=== PATIENT | female | born 1990 | race African-American/Black ===

== ENCOUNTER 2016-10-11 22:34 | Emergency (ER) | payer SELFPAY ==
[~2016-10-11] VITALS: Ht 165.1 cm; Wt 70.0 kg
[2016-10-11 22:35] VITALS: BP 133/70; PULSE 90; RESP 12; TEMP 97.9; O2SAT 98
--- NOTE | 2016-10-11 22:40 | PD ---
Physical Exam Date Seen by Provider: Oct 11, 2016 Time Seen by Provider: 22:38 Data Data Last Documented VS Vital Signs Date Time Temp Pulse Resp B/P Pulse Ox O2 Delivery O2 Flow Rate FiO2 10/11/16 22:35 97.9 90 12 133/70 98 Room Air MDM Supervised Visit with JAKE: No Narrative Course 26 YO F with complaint of 1 week history of right sided "rib pain." Rated 4/10. Worsened by deep breathing, certain movements. Patient thinks she may have "pulled something" at work. LMP 09/22 Vitals reviewed. Patient seen in triage, awaiting bed placement. Scripts No Active Prescriptions or Reported Meds Rayna Ramos Oct 11, 2016 22:40
--- NOTE | 2016-10-12 00:36 | PD ---
HPI Chief Complaint: Pain: Acute or Chronic Time Seen by Provider: 00:35 Travel History International Travel<30 days: No Contact w/Intl Traveler<30days: No Traveled to known affect area: No History of Present Illness HPI 26-year-old female came to the emergency room with history of right upper quadrant/right lower lung field pain that's pleuritic in nature. Patient says it's been going on for past 7 days. The pain has not worsened or gotten better but just ate the same. No history of fever or chills. No history of hemoptysis. No history of syncopal episode. Vital signs are stable. Denies any recent long distance travel, procedures or surgery or prolonged immobilization. No past history of PE or DVTs. No family history of PE or DVTs. No history of nausea vomiting. Patient is a smoker. [facility] Past Medical History Narrative Medical List of her past medical, surgical, social and family history is reviewed from the nursing note. Anemia: Yes Cancer: No Cardiovascular Problems: Yes (MURMUR) Cerebrovascular Accident: No Diabetes: No Diminished Hearing: No Myocardial Infarction: No ?: Unknown LMP: 09/22/16 Menopausal: No : 1 Para: 1 Past Surgical History Surgical History: No Previous Surgery Social History Alcohol Use: Yes (RARE) Tobacco Use: Yes (2 PPW) Substance Use: No Allergies-Medications (Allergen,Severity, Reaction): Coded Allergies: Citric Acid (Verified Allergy, Severe, hives, 10/12/16) Comments List of her allergies reviewed from the nursing note. Reported Meds & Prescriptions Reported Meds & Active Scripts Active Diclofenac Sodium DR (Diclofenac Sodium) 75 Mg Tabdr 75 Mg PO BID Narrative Medication Awaiting for the nurse to do the med reconciliation. Review of Systems Except as stated in HPI: all other systems reviewed are Neg Physical Exam Narrative GENERAL: Awake, alert, mild distress SKIN: Focused skin assessment warm/dry. HEAD: Atraumatic. Normocephalic. EYES: Pupils equal and round. No scleral icterus. No injection or drainage. ENT: No nasal bleeding or discharge. Mucous membranes pink and moist. NECK: Trachea midline. No JVD. CARDIOVASCULAR: Regular rate and rhythm. No murmur appreciated. RESPIRATORY: No accessory muscle use. Clear to auscultation. Breath sounds equal bilaterally. GASTROINTESTINAL: Abdomen soft, right upper quadrant tenderness, nondistended. Hepatic and splenic margins not palpable. MUSCULOSKELETAL: No obvious deformities. No clubbing. No cyanosis. No edema. NEUROLOGICAL: Awake and alert. No obvious cranial nerve deficits. Motor grossly within normal limits. Normal speech. PSYCHIATRIC: Appropriate mood and affect; insight and judgment normal. Data Data Last Documented VS Vital Signs Date Time Temp Pulse Resp B/P Pulse Ox O2 Delivery O2 Flow Rate FiO2 10/12/16 01:08 99 Room Air 10/11/16 22:35 97.9 90 12 133/70 Orders Ed Poc Ultrasound (10/12/16 ) Complete Blood Count With Diff (10/12/16 00:54) Comprehensive Metabolic Panel (10/12/16 00:54) D-Dimer (10/12/16 00:54) Chest, Single Ap (10/12/16 00:54) Ecg Monitoring (10/12/16 00:54) Bilateral Bp Monitoring (10/12/16 00:54) Iv Access Insert/Monitor (10/12/16 00:54) Oximetry (10/12/16 00:54) Oxygen Administration (10/12/16 00:54) Sodium Chloride 0.9% Flush (Ns Flush) (10/12/16 01:00) Urinalysis - C+S If Indicated (10/12/16 00:54) Ed Urine Pregnancytest Poc (10/12/16 00:54) Ketorolac Inj (Toradol Inj) (10/12/16 01:00) Sodium Chlor 0.9% 1000 Ml Inj (Ns 1000 M (10/12/16 01:45) Ct Pulmonary Angiogram (10/12/16 01:44) Iohexol 350 Inj (Omnipaque 350 Inj) (10/12/16 02:00) Ketorolac Inj (Toradol Inj) (10/12/16 03:30) Labs Laboratory Tests Test 10/12/16 01:10 White Blood Count 8.1 TH/MM3 Red Blood Count 3.41 MIL/MM3 Hemoglobin 10.2 GM/DL Hematocrit 30.5 % Mean Corpuscular Volume 89.6 FL Mean Corpuscular Hemoglobin 29.9 PG Mean Corpuscular Hemoglobin 33.4 % Concent Red Cell Distribution Width 13.4 % Platelet Count 228 TH/MM3 Mean Platelet Volume 10.2 FL Neutrophils (%) (Auto) 56.7 % Lymphocytes (%) (Auto) 28.1 % Monocytes (%) (Auto) 6.9 % Eosinophils (%) (Auto) 7.3 % Basophils (%) (Auto) 1.0 % Neutrophils # (Auto) 4.6 TH/MM3 Lymphocytes # (Auto) 2.3 TH/MM3 Monocytes # (Auto) 0.6 TH/MM3 Eosinophils # (Auto) 0.6 TH/MM3 Basophils # (Auto) 0.1 TH/MM3 CBC Comment DIFF FINAL Differential Comment D-Dimer Quantitative (PE/DVT) 2.49 MG/L FEU Urine Color YELLOW Urine Turbidity CLEAR Urine pH 6.0 Urine Specific [place] 1.025 Urine Protein TRACE mg/dL Urine Glucose (UA) NEG mg/dL Urine Ketones NEG mg/dL Urine Occult Blood NEG Urine Nitrite NEG Urine Bilirubin NEG Urine Urobilinogen 2.0 MG/DL Urine Leukocyte Esterase SMALL Urine WBC 4 /hpf Urine Squamous Epithelial 4 /hpf Cells Urine Bacteria RARE /hpf Urine Mucus MANY /lpf Microscopic Urinalysis Comment CULT NOT INDICATED Sodium Level 142 MEQ/L Potassium Level 3.4 MEQ/L Chloride Level 107 MEQ/L Carbon Dioxide Level 31.1 MEQ/L Anion Gap 4 MEQ/L Blood Urea Nitrogen 7 MG/DL Creatinine 0.70 MG/DL Estimat Glomerular Filtration 123 ML/MIN Rate Random Glucose 76 MG/DL Calcium Level 8.9 MG/DL Total Bilirubin 0.2 MG/DL Aspartate Amino Transf 7 U/L (AST/SGOT) Alanine Aminotransferase 14 U/L (ALT/SGPT) Alkaline Phosphatase 51 U/L Total Protein 7.5 GM/DL Albumin 3.6 GM/DL [facility] Medical Decision Making Medical Screen Exam Complete: Yes Emergency Medical Condition: Yes Medical Record Reviewed: Yes Differential Diagnosis PE, acute cholecystitis, pneumothorax, pneumonia, muscular skeletal pain Narrative Course 12:46 AM I'll do a bedside ultrasound for the right upper quadrant. If that's negative patient will blood work. 12:56 AM given the negative ultrasound I have ordered blood test including d- dimer. He signed over to the next ED provider. Procedures Procedure Narrative Emergency department right upper quadrant ultrasound was performed with patient consent. Curvilinear probe was used in the transverse and sagittal views within the right upper quadrant revealing gallbladder without obvious wall thickening, cholecystic fluid, or cholelithiasis. Gallbladder was contracted. EKG Prior to Arrival: No Scripts Diclofenac Sodium DR 75 Mg Tabdr75 Mg PO BID #20 TAB Prov:Gillian Escamilla MD 10/12/16 Gillian Escamilla MD Oct 12, 2016 00:36
[2016-10-12] MEDS ORDERED: KETOROLAC TROMETHAMINE 30 MG/ML (IVP) VIAL IV PUSH ONE ×2 (01:00→03:30)
[2016-10-12] MEDS ORDERED: SODIUM CHLORIDE 0.9% FLUSH 10 ML FLUSH IVF PRN (01:00)
[2016-10-12 01:08] VITALS: O2SAT 99
[2016-10-12 01:29] LABS: AUTOMATED NEUTROPHIL # 4.6 TH/MM3 (1.8-7.7); BASOPHIL # 0.1 TH/MM3 (0-0.2); EOSINOPHIL # 0.6 TH/MM3 (0-0.4); EOSINOPHIL % 7.3 % (0.0-4.0); HEMATOCRIT 30.5 % (35.0-46.0); HEMO FLAGS DIFF FINAL; LYMPH % 28.1 % (9.0-44.0); LYMPHOCYTE # 2.3 TH/MM3 (1.0-4.8); MEAN CELL VOLUME 89.6 FL (80.0-100.0); MEAN CORPUSCULAR HEMOGLOBIN 29.9 PG (27.0-34.0); MEAN CORPUSCULAR HGB CONC 33.4 % (32.0-36.0); MONO % 6.9 % (0.0-8.0); NEUT % 56.7 % (16.0-70.0); PLATELET COUNT 228 TH/MM3 (150-450); RED BLOOD COUNT 3.41 MIL/MM3 (4.00-5.30); RED CELL DISTRIBUTION WIDTH 13.4 % (11.6-17.2); WHITE BLOOD COUNT 8.1 TH/MM3 (4.0-11.0)
[2016-10-12 01:43] LABS: BACTERIA, URINE RARE /hpf; BLOOD, URINE NEG (NEG); GLUCOSE,URINE NEG (NEG); KETONE, URINE NEG (NEG); MUCUS URINE MANY /lpf (OCC); NITRITE,URINE NEG (NEG); SQUAMOUS EPITHELIAL CELL URINE 4 /hpf (0-5); URINE COLOR YELLOW (YELLW/STRAW)
[2016-10-12 01:45] LABS: COMMENT (UR) CULT NOT INDICATED; CULTURE IF INDICATED CULT NOT INDICATED
[2016-10-12] MEDS ORDERED: SODIUM CHLOR 0.9% 1000 ML INJ 1,000 ML IV ONE (01:45)
[2016-10-12 01:48] LABS: ALT (GPT) 14 U/L (10-53); ANION GAP 4 MEQ/L (5-15); AST (GOT) 7 U/L (15-37); BICARBONATE 31.1 MEQ/L (21.0-32.0); BLOOD UREA NITROGEN 7 MG/DL (7-18); CHLORIDE 107 MEQ/L (98-107); GLOMERULAR FILTRATION RATE 123 ML/MIN (>89); POTASSIUM 3.4 MEQ/L (3.5-5.1); SODIUM (NA) 142 MEQ/L (136-145)
--- NOTE | 2016-10-12 01:48 | RADRPT ---
EXAM DATE/TIME: 10/12/2016 00:51 [facility] COMPARISON: No previous studies available for comparison. INDICATIONS : Pt having right side lower chest pain. MEDICAL HISTORY : Anemia SURGICAL HISTORY : None. ENCOUNTER: Initial ACUITY: 1 week PAIN SCORE: 7/10 LOCATION: Bilateral chest FINDINGS: A single view of the chest demonstrates the lungs to be symmetrically aerated without evidence of mas s, infiltrate or effusion. The cardiomediastinal contours are unremarkable. Osseous structures are intact. CONCLUSION: No acute disease. Adán Bundy MD on October 12, 2016 at 1:47 Board Certified Radiologist. This report was verified electronically.
[2016-10-12 01:50] LABS: ALKALINE PHOSPHATASE 51 U/L (45-117); TOTAL BILIRUBIN ADULT 0.2 MG/DL (0.2-1.0)
[2016-10-12] MEDS ORDERED: IOHEXOL 350 MG/ML 10 ML VIAL (for RAD DIAG) IV ONE (02:00)
--- NOTE | 2016-10-12 03:05 | RADRPT ---
EXAM DATE/TIME: 10/12/2016 01:59 [facility] COMPARISON: No previous studies available for comparison. INDICATIONS : Right sided chest pain x1 week. IV CONTRAST: 75 cc Omnipaque 350 (iohexol) IV RADIATION DOSE: 23.18 CTDIvol (mGy) MEDICAL HISTORY : Heart murmur. SURGICAL HISTORY : None. ENCOUNTER: Initial ACUITY: 1 week PAIN SCALE: 4/10 LOCATION: Right chest TECHNIQUE: Volumetric scanning of the chest was performed using a pulmonary embolism protocol MIP images were re constructed. Using automated exposure control and adjustment of the mA and/or kV according to patien t size, radiation dose was kept as low as reasonably achievable to obtain optimal diagnostic quality images. DICOM format image data is available electronically for review and comparison. FINDINGS: PULMONARY ARTERIES: No filling defects are seen in the pulmonary arteries through the segmental level. LUNGS: There is no consolidation or pneumothorax . Minimal patchy densities in the lower lobes posteriorly. No concerning pulmonary nodule is visualized. PLEURAE: There is no pleural thickening or pleural effusion. MEDIASTINUM: There is good visualization of the great vessels of the middle mediastinum. No evidence of mediastin al or hilar adenopathy/mass. MUSCULOSKELETAL: Within normal limits for patient age. MISCELLANEOUS: The visualized upper abdominal organs demonstrate no acute abnormality. CONCLUSION: 1. No evidence for pulmonary embolism. 2. Minimal patchy densities in the lower lobes likely atelectasis. Adán Bundy MD on October 12, 2016 at 3:02 Board Certified Radiologist. This report was verified electronically.
--- NOTE | 2016-10-12 03:17 | PD ---
Physical Exam Date Seen by Provider: Oct 12, 2016 Time Seen by Provider: 03:15 Data Data Last Documented VS Vital Signs Date Time Temp Pulse Resp B/P Pulse Ox O2 Delivery O2 Flow Rate FiO2 10/12/16 01:08 99 Room Air 10/11/16 22:35 97.9 90 12 133/70 Orders Ed Poc Ultrasound (10/12/16 ) Complete Blood Count With Diff (10/12/16 00:54) Comprehensive Metabolic Panel (10/12/16 00:54) D-Dimer (10/12/16 00:54) Chest, Single Ap (10/12/16 00:54) Ecg Monitoring (10/12/16 00:54) Bilateral Bp Monitoring (10/12/16 00:54) Iv Access Insert/Monitor (10/12/16 00:54) Oximetry (10/12/16 00:54) Oxygen Administration (10/12/16 00:54) Sodium Chloride 0.9% Flush (Ns Flush) (10/12/16 01:00) Urinalysis - C+S If Indicated (10/12/16 00:54) Ed Urine Pregnancytest Poc (10/12/16 00:54) Ketorolac Inj (Toradol Inj) (10/12/16 01:00) Sodium Chlor 0.9% 1000 Ml Inj (Ns 1000 M (10/12/16 01:45) Ct Pulmonary Angiogram (10/12/16 01:44) Iohexol 350 Inj (Omnipaque 350 Inj) (10/12/16 02:00) Labs Laboratory Tests Test 10/12/16 01:10 White Blood Count 8.1 TH/MM3 Red Blood Count 3.41 MIL/MM3 Hemoglobin 10.2 GM/DL Hematocrit 30.5 % Mean Corpuscular Volume 89.6 FL Mean Corpuscular Hemoglobin 29.9 PG Mean Corpuscular Hemoglobin 33.4 % Concent Red Cell Distribution Width 13.4 % Platelet Count 228 TH/MM3 Mean Platelet Volume 10.2 FL Neutrophils (%) (Auto) 56.7 % Lymphocytes (%) (Auto) 28.1 % Monocytes (%) (Auto) 6.9 % Eosinophils (%) (Auto) 7.3 % Basophils (%) (Auto) 1.0 % Neutrophils # (Auto) 4.6 TH/MM3 Lymphocytes # (Auto) 2.3 TH/MM3 Monocytes # (Auto) 0.6 TH/MM3 Eosinophils # (Auto) 0.6 TH/MM3 Basophils # (Auto) 0.1 TH/MM3 CBC Comment DIFF FINAL Differential Comment D-Dimer Quantitative (PE/DVT) 2.49 MG/L FEU Urine Color YELLOW Urine Turbidity CLEAR Urine pH 6.0 Urine Specific [place] 1.025 Urine Protein TRACE mg/dL Urine Glucose (UA) NEG mg/dL Urine Ketones NEG mg/dL Urine Occult Blood NEG Urine Nitrite NEG Urine Bilirubin NEG Urine Urobilinogen 2.0 MG/DL Urine Leukocyte Esterase SMALL Urine WBC 4 /hpf Urine Squamous Epithelial 4 /hpf Cells Urine Bacteria RARE /hpf Urine Mucus MANY /lpf Microscopic Urinalysis Comment CULT NOT INDICATED Sodium Level 142 MEQ/L Potassium Level 3.4 MEQ/L Chloride Level 107 MEQ/L Carbon Dioxide Level 31.1 MEQ/L Anion Gap 4 MEQ/L Blood Urea Nitrogen 7 MG/DL Creatinine 0.70 MG/DL Estimat Glomerular Filtration 123 ML/MIN Rate Random Glucose 76 MG/DL Calcium Level 8.9 MG/DL Total Bilirubin 0.2 MG/DL Aspartate Amino Transf 7 U/L (AST/SGOT) Alanine Aminotransferase 14 U/L (ALT/SGPT) Alkaline Phosphatase 51 U/L Total Protein 7.5 GM/DL Albumin 3.6 GM/DL [facility] Medical Record Reviewed: Yes Supervised Visit with JAKE: Yes Interpretation(s) Last 24 hours Impressions Chest X-Ray 10/12/16 0054 Signed Impressions: Service Date/Time: Wednesday, October 12, 2016 00:51 - CONCLUSION: No acute disease. Adán Bundy MD CTA chest: Negative for acute pulmonary emboli Laboratory Tests Test 10/12/16 01:10 White Blood Count 8.1 TH/MM3 Red Blood Count 3.41 MIL/MM3 Hemoglobin 10.2 GM/DL Hematocrit 30.5 % Mean Corpuscular Volume 89.6 FL Mean Corpuscular Hemoglobin 29.9 PG Mean Corpuscular Hemoglobin 33.4 % Concent Red Cell Distribution Width 13.4 % Platelet Count 228 TH/MM3 Mean Platelet Volume 10.2 FL Neutrophils (%) (Auto) 56.7 % Lymphocytes (%) (Auto) 28.1 % Monocytes (%) (Auto) 6.9 % Eosinophils (%) (Auto) 7.3 % Basophils (%) (Auto) 1.0 % Neutrophils # (Auto) 4.6 TH/MM3 Lymphocytes # (Auto) 2.3 TH/MM3 Monocytes # (Auto) 0.6 TH/MM3 Eosinophils # (Auto) 0.6 TH/MM3 Basophils # (Auto) 0.1 TH/MM3 CBC Comment DIFF FINAL Differential Comment D-Dimer Quantitative (PE/DVT) 2.49 MG/L FEU Urine Color YELLOW Urine Turbidity CLEAR Urine pH 6.0 Urine Specific [place] 1.025 Urine Protein TRACE mg/dL Urine Glucose (UA) NEG mg/dL Urine Ketones NEG mg/dL Urine Occult Blood NEG Urine Nitrite NEG Urine Bilirubin NEG Urine Urobilinogen 2.0 MG/DL Urine Leukocyte Esterase SMALL Urine WBC 4 /hpf Urine Squamous Epithelial 4 /hpf Cells Urine Bacteria RARE /hpf Urine Mucus MANY /lpf Microscopic Urinalysis Comment CULT NOT INDICATED Sodium Level 142 MEQ/L Potassium Level 3.4 MEQ/L Chloride Level 107 MEQ/L Carbon Dioxide Level 31.1 MEQ/L Anion Gap 4 MEQ/L Blood Urea Nitrogen 7 MG/DL Creatinine 0.70 MG/DL Estimat Glomerular Filtration 123 ML/MIN Rate Random Glucose 76 MG/DL Calcium Level 8.9 MG/DL Total Bilirubin 0.2 MG/DL Aspartate Amino Transf 7 U/L (AST/SGOT) Alanine Aminotransferase 14 U/L (ALT/SGPT) Alkaline Phosphatase 51 U/L Total Protein 7.5 GM/DL Albumin 3.6 GM/DL Differential Diagnosis Differential diagnoses: Cholelithiasis, abnormal LFTs, electrolyte abnormality, pneumonia, pulmonary embolus, myofascial pain Narrative Course The CAT scan of the chest along with laboratory testing are unremarkable for any acute infection or pulmonary embolus. The patient is resting comfortable. This is chest wall pain. Diagnosis Primary Impression: Acute chest wall pain Patient Instructions: General Instructions Additional Instruction: Rest. Heating pad. Deep breaths every half hour. Voltaren. Follow-up with a primary care doctor in one week. Return to the ER for emergencies. Med/Other Pt SpecificInfo: Prescription(s) given Scripts No Active Prescriptions or Reported Meds Disposition: DISCHARGE HOME Condition: Stable Boyd Urias Oct 12, 2016 03:17
[2016-10-12] MEDS ORDERED: DICL75TA PO (03:18)
== END 2016-10-12 04:06 | disposition home or self-care (01) ==
LOC: NEPD 22:34
DX: R07.89 Other chest pain (principal)
CPT/HCPCS: 71010; 71275; 80053; 81001; 84703; 85025; 85379; 96374; 96375; 99285; J1885; J7030; Q9967